=== PATIENT | female | born 1945 | race American Indian/Alaskan Native ===

== ENCOUNTER 2018-01-25 09:13 | Day surgery (SDC) | payer MEDICARE, BC ==
[2018-01-25 09:29] VITALS: BMI 39.4
[2018-01-25] MEDS ORDERED: Propofol 10 mg/ml Inj (20 ML) ONE (10:33)
--- NOTE | 2018-01-25 10:33 | CP.SDSHP ---
Same Day Surgery H & P - History Proposed Procedure: EGD/ COLONSCOPY Pre-Op Diagnosis: SEE NOTES - Previous Medical/Surgical History Cardiac: Hypertension Misc: Other Pain: 4.Moderate Pain Previous Surgical History: COLON POLYPS - Allergies Allergies: Allergies No Known Allergies Allergy (Verified 05/09/15 07:44) - Physical Exam General Appearance: N Vital Signs: Vital Signs 01/25/18 09:31 Temperature 97.8 F Pulse Rate 80 Respiratory 16 Rate Blood Pressure 174/82 H O2 Sat by Pulse 97 Oximetry Mental Status: Alert & Oriented x3 Neuro: WNL Heart: Other Lungs: WNL GI: WNL - {Optional Preform as Required} Breast: WNL Abdomen: Other Rectal: Other Integument: WNL : WNL Ortho: WNL ENT: WNL - Impression Pt. Evaluated Today:Candidate for Anesthesia & Procedure: Yes - Date & Time Time: 10:33 Short Stay Discharge - Short Stay Discharge Admitting Diagnosis/Reason for Visit: DYSPEPSIA / COLON POLYP Disposition: HOME/ ROUTINE
[2018-01-25 11:10] VITALS: TEMP 97.3
[2018-01-25 11:33] VITALS: PULSE 76
[2018-01-25] MEDS ORDERED: Belladonna-Phenobarbital PO ONE (11:35)
[2018-01-25 13:06] VITALS: BP 167/87; RESP 18; O2SAT 99
== END 2018-01-25 12:20 | disposition home or self-care (01) ==
LOC: C.ENDO 09:13
PROVIDERS: ATTEND Specialist
DX: Z12.11 Encounter for screening for malignant neoplasm of colon (principal); Z86.010 Personal history of colon polyps; K64.4 Residual hemorrhoidal skin tags; K64.8 Other hemorrhoids; Z98.0 Intestinal bypass and anastomosis status; K58.9 Irritable bowel syndrome, unspecified; R10.13 Epigastric pain; K21.0 Gastro-esophageal reflux disease with esophagitis; K44.9 Diaphragmatic hernia without obstruction or gangrene; I10 Essential (primary) hypertension; K29.70 Gastritis, unspecified, without bleeding
CPT/HCPCS: 43239; 45380; 88305; J2704